=== PATIENT | male | born 1955 | race Two or more races ===

== ENCOUNTER → 2017-03-16 | Outpatient (CLI) | payer BC ==
--- NOTE | 2017-03-16 08:56 | RAD ---
Right shoulder radiographs History: Right shoulder pain for one day, fall. Comparison: None. Findings: AP internal rotation, AP external rotation, and scapular Y-view of the right shoulder. No acute fracture or dislocation is identified. Mild glenohumeral and acromioclavicular degeneration is seen. Impression: Mild degeneration. No acute osseous traumatic injury identified.
== END | disposition home or self-care (01) ==
LOC: DXRADRC 07:41
PROVIDERS: ATTEND Physician Assistant Medical
DX: M19.011 Primary osteoarthritis, right shoulder (principal)
CPT/HCPCS: 73030

== ENCOUNTER → 2018-07-14 | Outpatient (CLI) | payer MEDICARE, BC ==
--- NOTE | 2018-07-14 12:20 | RAD ---
Left shoulder, 3 views, 07/14/2018: HISTORY: Left shoulder pain No fracture or dislocation is identified. There is mild degenerative change at the AC joint. There is minimal sclerotic and cystic change at the rotator cuff insertion site on the greater tuberosity. IMPRESSION: 1. Mild degenerative change. 2. No acute bony abnormality is detected. Electronically signed by: Yony Segundo MD (07/14/2018 12:17 PM) [facility] [place]
== END | disposition home or self-care (01) ==
LOC: DXRAD 08:04
PROVIDERS: ATTEND Physician Assistant Medical
DX: M25.512 Pain in left shoulder (principal); M19.011 Primary osteoarthritis, right shoulder
CPT/HCPCS: 73030

== ENCOUNTER → 2018-08-16 | Outpatient (CLI) | payer MEDICARE, BC | END | disposition home or self-care (01) | LOC: LAB 15:08 | PROVIDERS: ATTEND Urology | DX: N40.1 Benign prostatic hyperplasia with lower urinary tract symptoms (principal) | CPT/HCPCS: 84153; G0103 ==

== ENCOUNTER → 2019-02-09 | Outpatient (CLI) | payer MEDICARE, BC ==
[~2019-02-09] MED LIST: ALFU10TA3 PO; CHOL100013 PO; FISH12002 PO; GLUC100018 PO; IOHEXOL 240 MG/ML 50ML VIAL. ONE; IOHEXOL 240 MG/ML 50ML VIAL. PO ONE; IOHEXOL 300 MG/ML 75 ML VIAL. IV ONE; ZOLP10TA PO
--- NOTE | 2019-02-09 12:09 | RAD ---
PQRS Compliance statement: One or more of the following individualized dose reduction techniques were utilized for this examination: 1. Automated exposure control. 2. Adjustment of the mA and/or kV according to patient size. 3. Use of iterative reconstruction technique. Indication:LOWER ABDOMINAL PAIN WITH BLOATING FOR A FEW WEEKS. ORAL AND 75MLS OMNI 300 IV CONTRAST TECHNIQUE: CT abdomen and pelvis with IV contrast with multiplanar reformats. COMPARISON: None FINDINGS: Heart is normal in size. No pericardial or pleural effusion. Clear lung bases. Liver, spleen, gallbladder, pancreas, adrenals and kidneys within normal limits. No enlarged retroperitoneal or pelvic adenopathy. No free pelvic fluid or ascites. No bowel obstruction. Large amount of colonic stool burden. Circumferential urinary bladder wall thickening is seen. No radiopaque stone seen in the bladder. No suspicious bony lesion. IMPRESSION: 1. Large amount of colonic stool burden, patient may be constipated. No other acute findings seen. Correlate with colonoscopy. 2. Circumferential urinary bladder wall thickening may be secondary to cystitis or chronic outlet obstruction. Correlate with urinalysis. Electronically signed by: Sebastian Johnson DO (02/09/2019 12:07 PM) [facility]
== END | disposition home or self-care (01) ==
LOC: CT 08:38
PROVIDERS: ATTEND Physician Assistant Medical
DX: R10.9 Unspecified abdominal pain (principal)
CPT/HCPCS: 74177; Q9966; Q9967

== ENCOUNTER → 2019-02-27 | Day surgery (SDC) | payer MEDICARE, BC ==
[~2019-02-27] MED LIST changes: +ALBUTEROL SULFATE 2.5 MG/3 ML NEBU. NEB PRN; +ATROPINE 0.5 MG/5 ML DISP.SYRIN. IV PRN; -IOHEXOL 240 MG/ML 50ML VIAL. ONE; -IOHEXOL 240 MG/ML 50ML VIAL. PO ONE; -IOHEXOL 300 MG/ML 75 ML VIAL. IV ONE; +IV RINGERS SOLUTION,LACTATED 1,000 ML IV SCH; +LIDOCAINE 2% PF Vial for OR 5 ML VIAL. ONE; +NALOXONE 0.4 MG/ML VIAL. IV PRN; +ONDANSETRON PF 4 MG/2 ML VIAL. IV PRN; +PROPOFOL 40 ML IV ONE; +diphenhydrAMINE 50 MG/ML VIAL IV PRN
[2019-02-27 11:00] VITALS: BP 119/73
== END | disposition home or self-care (01) ==
LOC: SURG 09:28
PROVIDERS: ATTEND Internal Medicine Gastroenterology
DX: Z12.11 Encounter for screening for malignant neoplasm of colon (principal); K57.30 Diverticulosis of large intestine without perforation or abscess without bleeding; Z72.89 Other problems related to lifestyle; M19.90 Unspecified osteoarthritis, unspecified site; Z98.890 Other specified postprocedural states; Z79.899 Other long term (current) drug therapy; Z88.8 Allergy status to other drugs, medicaments and biological substances
CPT/HCPCS: G0121; J2704; J7120; G0105; J2001

== ENCOUNTER → 2019-03-01 | Outpatient (CLI) | payer MEDICARE, BC ==
[2019-02-27 11:00] VITALS: BP 119/73
[~2019-03-01] MED LIST changes: -ALBUTEROL SULFATE 2.5 MG/3 ML NEBU. NEB PRN; -ATROPINE 0.5 MG/5 ML DISP.SYRIN. IV PRN; -IV RINGERS SOLUTION,LACTATED 1,000 ML IV SCH; -LIDOCAINE 2% PF Vial for OR 5 ML VIAL. ONE; -NALOXONE 0.4 MG/ML VIAL. IV PRN; -ONDANSETRON PF 4 MG/2 ML VIAL. IV PRN; -PROPOFOL 40 ML IV ONE; -diphenhydrAMINE 50 MG/ML VIAL IV PRN
--- NOTE | 2019-03-01 17:00 | RAD ---
Limited sonogram of the pelvis Clinical indications: CT scan showed thickening of the urinary bladder. FINDINGS: Sonography of the bladder was performed. The urinary bladder wall does not appear to be abnormally thickened or hyperemic. No intraluminal echodensities or masses are seen. Prior to voiding, the volume is 385 cc. After voiding, the volume is 113 cc. IMPRESSION: Moderate post void urinary bladder residual volume. The prostate gland is mildly enlarged measuring 4.6 cm transversely on the CT study of February 09, 2019. Electronically signed by: Kevin Leslie MD (03/01/2019 4:57 PM) [place] [id number]
== END | disposition home or self-care (01) ==
LOC: US 10:32
PROVIDERS: ATTEND Physician Assistant Medical
DX: N40.0 Benign prostatic hyperplasia without lower urinary tract symptoms (principal); R10.9 Unspecified abdominal pain
CPT/HCPCS: 76857